=== PATIENT | male | born 1950 | race Caucasian/White ===

== ENCOUNTER 2020-04-09 15:05 | Outpatient (CLI) | payer MEDICARE, BC ==
--- NOTE | 2020-04-09 16:29 | XRAY Report ---
PROCEDURE: Lumbar Spine Complete INDICATIONS: SPINAL STENOSIS TECHNIQUE: 5 views of the lumbar spine were acquired. COMPARISON: None. FINDINGS: Bones: 5 [id number] vertebrae are present. There is mild diffuse lobar curvature of the lumbar spine. Multilevel disc space narrowing and endplate osteophyte formation, worst at L2-L3 and L3-L4, indicating degenerative disc disease. Facet hypertrophy throughout the mid and lower lumbar spine. Mi ld grade 1 retrolisthesis of L2 on L3. No vertebral body compression fractures. No suspicious bony l esions. Soft tissues: Overlying bowel gas pattern is normal. No suspicious soft tissue calcifications. IMPRESSION: 1. Multilevel degenerative disc and facet disease. 2. No acute fracture. No osseous lesion. If symptoms and/or clinical suspicion for pathology continue , further assessment with repeat plain films, or advanced imaging (e.g., CT, MRI, or bone scan) is re commended for further assessment. Reviewed by: Joann Epstein MD on 04/09/2020 4:27 PM PDT Approved by: Joann Epstein MD on 04/09/2020 4:27 PM PDT Station ID: [id number]
== END 2020-04-09 15:06 | disposition home or self-care (01) ==
LOC: DI 15:05
PROVIDERS: ATTEND Nurse Practitioner Family
DX: M43.16 Spondylolisthesis, lumbar region (principal); M51.36 Other intervertebral disc degeneration, lumbar region; M47.816 Spondylosis without myelopathy or radiculopathy, lumbar region
CPT/HCPCS: 72110